=== PATIENT | female | born 1990 | race African-American/Black ===

== ENCOUNTER 2016-08-22 13:10 | Emergency (ER) | payer OTHER ==
[~2016-08-22] VITALS: Ht 170.2 cm; Wt 56.7 kg
[~2016-08-22 13:10] MED LIST: ALBUTEROL INHAL17 GM IH; AMOXIL 875 MG875 M1 PO; BIRTH CONTROL; MEDROLDOSEPACK PO; ZPAK PO
[2016-08-22] MEDS ORDERED: TRINATE TABLET1 TAB PO (13:34)
[2016-08-22] MEDS ORDERED: DEPO-PROVE150 MG/1 M IM (13:34)
[2016-08-22 13:43] LABS: ABSOLUTE NEUTROPHILS 4.7 thou/uL (1.4-8.2); BASOPHILS 0.5 % (0.0-2.0); EOSINOPHILS 3.4 % (0.0-3.0); HEMOGLOBIN 13.5 gm/dL (12.0-15.0); LYMPHOCYTES 31.7 % (24.0-44.0); MCH 29.2 pg (26.0-34.0); MCHC 32.9 % (28.0-37.0); MCV 88.7 fL (80.0-100.0); MONOCYTES 7.4 % (1.0-8.0); PLATELET COUNT 174 thou/uL (150-400); RBC 4.63 mil/uL (4.20-5.00); RDW 15.1 % (10.5-14.5); WBC 8.3 thou/uL (4.0-11.0)
[2016-08-22 13:45] LABS: MANUAL DIFF NO
[2016-08-22 13:47] LABS: CALCIUM 9.5 mg/dL (8.5-10.1); CREATININE 0.9 mg/dL (0.6-1.3); POTASSIUM 4.2 mmol/L (3.5-5.1)
[2016-08-22 13:53] LABS: ALBUMIN 3.9 g/dL (3.4-5.0); TOTAL BILIRUBIN 0.3 mg/dL (<0.1-1.0); TOTAL PROTEIN 8.1 g/dL (6.4-8.2)
[2016-08-22 15:09] LABS: URINE BILIRUBIN NEGATIVE (Negative); URINE BLOOD 3+ (Negative); URINE COLOR YELLOW; URINE GLUCOSE-RANDOM* NEGATIVE (Negative); URINE KETONES TRACE (Negative); URINE NITRITE NEGATIVE (Negative); URINE PROTEIN (DIPSTICK) NEGATIVE (Negative); URINE UROBILINOGEN 0.2 E.U./dl (0.2-1.0)
[2016-08-22 15:16] LABS: BACTERIA 1-9 Few /HPF (None Seen); CASTS None Seen /LPF (None Seen); CRYSTALS None Seen /LPF (None Seen); SQUAMOUS 0-3 Few /LPF (0-3); URINE RBC 3-10 Few /HPF (0-2); URINE WBC 0-5 Rare /HPF (0-5)
[2016-08-22] MEDS ORDERED: ONDANSETRON HCL4 M2 PO (16:07)
[2016-08-22 17:25] VITALS: BP 118/74
== END 2016-08-22 17:49 | disposition home or self-care (01) ==
LOC: ER 13:10
PROVIDERS: Physician Assistant
DX: R10.30 Lower abdominal pain, unspecified (principal); R11.2 Nausea with vomiting, unspecified; R19.7 Diarrhea, unspecified; J45.909 Unspecified asthma, uncomplicated